=== PATIENT | male | born 1970 | race Caucasian/White ===

== ENCOUNTER 2016-11-25 10:56 | Outpatient (CLI) | payer MEDICAID | END 2016-11-25 10:57 | disposition home or self-care (01) | DX: E11.65 Type 2 diabetes mellitus with hyperglycemia (principal) ==

== ENCOUNTER 2017-03-01 07:31 | Outpatient (CLI) | payer MEDICAID | END 2017-03-01 07:32 | disposition home or self-care (01) | DX: E11.65 Type 2 diabetes mellitus with hyperglycemia (principal); E66.01 Morbid (severe) obesity due to excess calories ==

== ENCOUNTER 2017-06-10 10:32 | Outpatient (CLI) | payer MEDICAID ==
[2017-06-10 18:16] LABS: CALCIUM 8.4 mg/dL (8.5-10.3); CREATININE 0.6 mg/dL (0.6-1.2); POTASSIUM 4.5 mmol/L (3.5-5.0)
[2017-06-10 18:34] LABS: HEMOGLOBIN A1C 1.31 g/dL
== END 2017-06-10 10:33 | disposition home or self-care (01) ==
LOC: LAB.F 10:32
PROVIDERS: ATTEND Nurse Practitioner Family
DX: E11.65 Type 2 diabetes mellitus with hyperglycemia (principal); Z79.4 Long term (current) use of insulin
CPT/HCPCS: 36415; 80048; 83036

== ENCOUNTER 2017-06-14 08:31 | Outpatient (CLI) | payer MEDICAID ==
[2017-06-14 19:20] LABS: CALCIUM 8.6 mg/dL (8.5-10.3); CREATININE 0.8 mg/dL (0.6-1.2); POTASSIUM 4.4 mmol/L (3.5-5.0)
== END 2017-06-14 08:32 | disposition home or self-care (01) ==
LOC: LAB.S 08:31
PROVIDERS: ATTEND Nurse Practitioner Family
DX: E11.65 Type 2 diabetes mellitus with hyperglycemia (principal)
CPT/HCPCS: 36415; 80048

== ENCOUNTER 2017-08-30 13:12 | Outpatient (CLI) | payer MEDICAID | END 2017-08-30 13:13 | disposition home or self-care (01) | LOC: SC 13:12 | PROVIDERS: ATTEND Internal Medicine Pulmonary Disease | DX: G47.33 Obstructive sleep apnea (adult) (pediatric) (principal) | CPT/HCPCS: 99203; 99212 ==

== ENCOUNTER 2017-09-30 13:02 | Outpatient (CLI) | payer MEDICAID | END 2017-09-30 13:03 | disposition home or self-care (01) | LOC: SC 13:02 | PROVIDERS: ATTEND Specialist | DX: G47.33 Obstructive sleep apnea (adult) (pediatric) (principal) | CPT/HCPCS: 99212; 99215 ==

== ENCOUNTER 2017-12-13 08:00 | Outpatient (CLI) | payer MEDICAID ==
[2017-12-13 19:45] LABS: CALCIUM 8.6 mg/dL (8.5-10.3); CREATININE 0.8 mg/dL (0.6-1.2)
[2017-12-13 19:53] LABS: HEMOGLOBIN A1C 1.57 g/dL; HEMOGLOBIN A1C % 10.1 % (4.6-6.2)
== END 2017-12-13 08:01 | disposition home or self-care (01) ==
LOC: LAB.N 08:00
PROVIDERS: ATTEND Nurse Practitioner Family
DX: E11.65 Type 2 diabetes mellitus with hyperglycemia (principal)
CPT/HCPCS: 36415; 80048; 83036

== ENCOUNTER 2017-12-13 13:15 | Outpatient (CLI) | payer MEDICAID | END 2017-12-13 13:16 | disposition home or self-care (01) | LOC: SC 13:15 | PROVIDERS: ATTEND Nurse Practitioner Family | DX: G47.33 Obstructive sleep apnea (adult) (pediatric) (principal) | CPT/HCPCS: 99212; 99214 ==

== ENCOUNTER 2017-12-28 08:24 | Outpatient (CLI) | payer MEDICAID | END 2017-12-28 08:25 | disposition home or self-care (01) | LOC: SC 08:24 | PROVIDERS: ATTEND Nurse Practitioner Family | DX: G47.33 Obstructive sleep apnea (adult) (pediatric) (principal) | CPT/HCPCS: 99212; 99214 ==

== ENCOUNTER 2018-02-24 10:37 | Outpatient (CLI) | payer MEDICAID | END 2018-02-24 10:38 | disposition home or self-care (01) | LOC: SC 10:37 | PROVIDERS: ATTEND Nurse Practitioner Family | DX: G47.33 Obstructive sleep apnea (adult) (pediatric) (principal) | CPT/HCPCS: 99212; 99214 ==

== ENCOUNTER 2018-03-28 10:48 | Outpatient (CLI) | payer MEDICAID | END 2018-03-28 10:49 | disposition home or self-care (01) | LOC: SC 10:48 | PROVIDERS: ATTEND Nurse Practitioner Family | DX: G47.33 Obstructive sleep apnea (adult) (pediatric) (principal) | CPT/HCPCS: 99214 ==

== ENCOUNTER 2018-03-28 13:43 | Outpatient (CLI) | payer MEDICAID ==
[2018-03-28 19:29] LABS: ALBUMIN 3.9 g/dL (3.2-5.5); ALKALINE PHOSPHATASE 47 IU/L (42-121); ALT ALANINE AMINOTRANSFERASE 24 IU/L (10-60); AST ASPARTATE AMINOTRANSFERASE 20 IU/L (10-42); BUN - BLOOD UREA NITROGEN 15 mg/dL (6-20); CALCIUM 8.7 mg/dL (8.5-10.3); CARBON DIOXIDE - CO2 28 mmol/L (21-32); CHLORIDE 100 mmol/L (101-111); CHOL/HDL RATIO 4.3 (<5.0); CHOLESTEROL 169 mg/dL; CREATININE 0.6 mg/dL (0.6-1.2); GFR - MDRD 144 (>89); GLUCOSE 128 mg/dL (70-100); HDL CHOLESTEROL 39 mg/dL; LDL CHOLESTEROL,CALCULATED 87 mg/dL; LDL/HDL RATIO 2.2 (<3.6); SODIUM 136 mmol/L (135-145); TOTAL PROTEIN 7.7 g/dL (6.7-8.2); URIC ACID 6.1 mg/dL (2.6-7.2); VLDL CHOLESTEROL 43 mg/dL
[2018-03-28 20:09] LABS: HB2 TOTAL 16.5 g/dL; HEMOGLOBIN A1C 1.12 g/dL; HEMOGLOBIN A1C % 8.4 % (4.6-6.2)
== END 2018-03-28 13:44 | disposition home or self-care (01) ==
LOC: LAB.N 13:43
PROVIDERS: ATTEND Nurse Practitioner Family
DX: E11.621 Type 2 diabetes mellitus with foot ulcer (principal); I10 Essential (primary) hypertension; L03.031 Cellulitis of right toe
CPT/HCPCS: 36415; 80053; 80061; 83036; 83721; 84550

== ENCOUNTER 2018-03-29 11:51 | Outpatient (CLI) | payer MEDICAID ==
--- NOTE | 2018-03-29 12:50 | XRAY Report ---
THREE VIEW RIGHT GREAT TOE: 03/29/2018 CLINICAL INDICATION: Swelling and pain. FINDINGS: AP, lateral, oblique views of the right great toe demonstrate a mildly displaced, intraarticular fracture of the distal end of the proximal phalanx. No other fracture is appreciated. No radiopaque foreign body is seen in the soft tissues. IMPRESSION: MILDLY DISPLACED, INTRAARTICULAR FRACTURE OF THE DISTAL END OF THE PROXIMAL PHALANX OF THE GREAT TOE. TD: 03/29/2018 12:28
== END 2018-03-29 11:52 | disposition home or self-care (01) ==
LOC: DI.S 11:51
PROVIDERS: ATTEND Nurse Practitioner Family
DX: S92.411A Displaced fracture of proximal phalanx of right great toe, initial encounter for closed fracture (principal); M79.89 Other specified soft tissue disorders
CPT/HCPCS: 73660

== ENCOUNTER 2018-06-28 10:46 | Outpatient (CLI) | payer MEDICAID | END 2018-06-28 10:47 | disposition home or self-care (01) | LOC: SC 10:46 | PROVIDERS: ATTEND Nurse Practitioner Family | DX: G47.30 Sleep apnea, unspecified (principal) | CPT/HCPCS: 99212; 99214 ==

== ENCOUNTER 2018-07-20 10:48 | Outpatient (CLI) | payer MEDICAID ==
[2018-07-20 18:10] LABS: HB2 TOTAL 15.5 g/dL; HEMOGLOBIN A1C % 8.1 % (4.6-6.2)
[2018-07-20 18:20] LABS: CALCIUM 8.1 mg/dL (8.5-10.3); CREATININE 0.8 mg/dL (0.6-1.2)
== END 2018-07-20 10:49 | disposition home or self-care (01) ==
LOC: LAB.F 10:48
PROVIDERS: ATTEND Nurse Practitioner Family
DX: I10 Essential (primary) hypertension (principal); E11.9 Type 2 diabetes mellitus without complications
CPT/HCPCS: 36415; 80048; 82043; 83036

== ENCOUNTER 2018-12-12 13:40 | Outpatient (CLI) | payer MEDICAID | END 2018-12-12 13:41 | disposition home or self-care (01) | LOC: SC 13:40 | PROVIDERS: ATTEND Nurse Practitioner Family | DX: G47.33 Obstructive sleep apnea (adult) (pediatric) (principal) | CPT/HCPCS: 99212; 99214 ==

== ENCOUNTER 2019-03-06 08:00 | Outpatient (CLI) | payer MEDICAID ==
[2019-03-06 19:00] LABS: ALBUMIN/GLOBULIN RATIO 0.9 (1.0-2.2); ALKALINE PHOSPHATASE 52 IU/L (42-121); ALT ALANINE AMINOTRANSFERASE 23 IU/L (10-60); AST ASPARTATE AMINOTRANSFERASE 16 IU/L (10-42); BILIRUBIN,TOTAL 0.6 mg/dL (0.2-1.0); BUN - BLOOD UREA NITROGEN 19 mg/dL (6-20); CALCIUM 9.1 mg/dL (8.5-10.3); CARBON DIOXIDE - CO2 25 mmol/L (21-32); CHLORIDE 103 mmol/L (101-111); CHOL/HDL RATIO 3.5 (<5.0); CHOLESTEROL 183 mg/dL; CREATININE 0.8 mg/dL (0.6-1.2); GFR - MDRD 103 (>89); GLUCOSE 191 mg/dL (70-100); HDL CHOLESTEROL 52 mg/dL; LDL CHOLESTEROL,CALCULATED 98 mg/dL; LDL/HDL RATIO 1.9 (<3.6); SODIUM 139 mmol/L (135-145); TOTAL PROTEIN 8.3 g/dL (6.7-8.2); VLDL CHOLESTEROL 33 mg/dL
[2019-03-06 19:16] LABS: HB2 TOTAL 17.2 g/dL; HEMOGLOBIN A1C 1.07 g/dL; HEMOGLOBIN A1C % 7.8 % (4.6-6.2)
== END 2019-03-06 23:59 | disposition home or self-care (01) ==
LOC: LAB.N 08:00
PROVIDERS: ATTEND Internal Medicine
DX: E11.65 Type 2 diabetes mellitus with hyperglycemia (principal); E78.5 Hyperlipidemia, unspecified
CPT/HCPCS: 36415; 80053; 80061; 82043; 83036; 83721

== ENCOUNTER 2020-01-01 14:50 | Outpatient (CLI) | payer MEDICAID ==
[2020-01-01 15:42] VITALS: BP 120/74
--- NOTE | 2020-01-01 15:42 | SLEEP CARE CONSULTATION ---
Information from patient questionnaire entered by Alda Alcantara. I have reviewed and concur with the information entered by Alda Alcantara. This document represents the service I personally performed and the decisions made by me, Macie Matute, RN, MSN, TRANSFORMATION CONSULTANT. History of Present Illness Previous diagnosis: Severe, Obstructive Sleep Apnea-Hypopnea Syndrome AHI: 70.4 Reason for follow up: annual Equipment type: CPAP Equipment obtained from: [facility] (while traveling obtained filters at pharmacy.) Mask brand: Respironics Backup mask available: Yes (old mask for spare ) Last cushion change: 4 months ago Prior sleep studies: Yes CPAP Compliance Data - Data Reviewed with Patient Average duration of nightly device use: 6H 1M Compliance rate %: 81.1 Current pressure setting (cmH2O): 19-20 Humidity settin Heated hose settin Average residual AHI: 4.8 Average large leak: 15m 31s Subjective Patient concerns: reports: air blowing in eyes (every other night until tightened more - headgear old ), dry mouth, nose, throat (1 time a week ). denies: aerophagia, mask discomfort, mask leak noise, condensation in mask/hose, nasal congestion, epistaxis Observed to snore while using device: No Current pressure setting perceived as: comfortable On therapy, patient: reports: sleeping better, awakening more refreshed, being more awake and alert during the day, more rested overall. denies: drowsiness while driving Initial Redwood Sleepiness Scale score: 19 Current Redwood Sleepiness Scale score: 9 Allergies and Home Medications Known drug allergies: Yes (penicillin, clindamycin ) Home medication list reviewed: Yes Allergy and home medication list: Medication Name (generic/name brand) Strength & Dosage Ibuprofen 800mg tab one three times daily Baclofen 10mg tab one daily at bedtime Gabapentin 300mg cap three tablets 2 times daily Furosemide 20mg tab one daily in the am Simvastatin 20mg tab one daily at bedtime Lisinopril 40mg - tab every other day. Recently the prescription has been reduce to 20mg to take tab. Jardiance 25mg tab one daily Glipizide 5mg tab one twice daily with food duloxetine daily HS unknown dose Wellbutrin 300mg tab one daily Review of Systems Review of systems same as previous: Yes Physical Exam Blood Pressure: 120/74 Cuff size: long Heart Rate: 77 O2 Saturation: 98 Height: 6 ft 2 in Weight: 321 lb Body Mass Index: 41.2 BMI Classification: Morbidly Obese Impression and Plan 1. Obstructive Sleep Apnea-Hypopnea Syndrome, very severe, with good treatment compliance and good apnea control. On CPAP therapy, the patient has better sleep quality and is more rested overall. Oral dryness can be reduced by adjus ting humidity setting higher or heated hose lower or by adjusting both settings. Oral dryness can also be reduced by reducing mask leaks. Patient advised that chronic oral dryness can affect dental health and advised to follow up with dentist. In addition, there are oral dryness products that can be used to reduce dryness such as Biotene products, Dry mouth rinse and Xylomelts. Patient to discuss best option with dentist.Patient has lost weight. Currently patients BMI is 41.9 obesity class. Obesity increases the risk of apnea, CPAP pressure requirements and overall health risks especially cardiovascular and diabetes. Thus patient is advised to continue to lose weight. Weight loss can be done with reducing portion size, reducing refined foods and balancing content with vegetables, fruit and protein. In addition tracking food intake will allow awareness of how to modify diet to achieve weight loss goals. Also eating more slowly will allow more awareness of food intake and enjoyment of food while assisting patient to modify intake at each meal. A diet consultation can be helpful in achieving optimal weight loss goals. The BMI chart was reviewed. The patient would like to reduce about 20 -25 pounds bringing their BMI down to about 38. Patient encouraged to discuss their weight loss goals with their PCP and consider a referral to a air control/anti air warfare officer. The patient's CPAP pressure range should accommodate some weight loss. Symptoms to report for additional pressure adjustment discussed. Patient's apnea severity and rationale for treatment to reduce apnea, improve sleep quality and reduce cardiovascular and cerebrovascular events was reviewed. I also reviewed the benefit of consistent device use of CPAP for hypertension, diabetes, depression/anxiety. He is also considering transferring to new [facility] that will send him equipment for convenience of sending equipment to his home. I will have my early childhood education coordinator inform of DME options. A DWO prescription will then be made. Patient advised to contact this office if further supply problems. Patient decided to transfer to [facility] after discussing his options. * Continue CPAP pressure at 19 -20 cmH2O * Adjust heated hose * Update supplies to reduce mask leaks. * Transfer to new [facility] * Notify me if snoring with mask or feeling that the pressure is too much or too little * Attempt to lose weight * Follow up with PCP for diet consultation referral * Call this office if any problems using CPAP * Return for follow up in 1 year , or sooner if concerns arise Time Spent with Patient (minutes): 29 I spent 100% of this visit face to face with the patient with greater than 50% of this was spent time counseling the patient and coordination of care.
== END 2020-01-01 14:51 | disposition home or self-care (01) ==
LOC: SC 14:50
PROVIDERS: ATTEND Nurse Practitioner Family
DX: G47.33 Obstructive sleep apnea (adult) (pediatric) (principal); E66.01 Morbid (severe) obesity due to excess calories; Z68.41 Body mass index [BMI] 40.0-44.9, adult
CPT/HCPCS: 99212; 99214

== ENCOUNTER 2020-03-11 14:18 | Outpatient (CLI) | payer MEDICAID ==
[2020-03-11 14:54] LABS: ALBUMIN 4.1 g/dL (3.2-5.5); ALBUMIN/GLOBULIN RATIO 1.1 (1.0-2.2); ALKALINE PHOSPHATASE 49 IU/L (42-121); ALT ALANINE AMINOTRANSFERASE 27 IU/L (10-60); AST ASPARTATE AMINOTRANSFERASE 19 IU/L (10-42); BILIRUBIN,TOTAL 0.9 mg/dL (0.2-1.0); BUN - BLOOD UREA NITROGEN 17 mg/dL (6-20); CALCIUM 8.5 mg/dL (8.5-10.3); CARBON DIOXIDE - CO2 28 mmol/L (21-32); CHLORIDE 100 mmol/L (101-111); CHOL/HDL RATIO 3.7 (<5.0); CHOLESTEROL 162 mg/dL; CREATININE 0.7 mg/dL (0.6-1.2); GLUCOSE 173 mg/dL (70-100); HDL CHOLESTEROL 44 mg/dL; LDL CHOLESTEROL,CALCULATED 79 mg/dL; LDL/HDL RATIO 1.8 (<3.6); SODIUM 137 mmol/L (135-145); TOTAL PROTEIN 7.8 g/dL (6.7-8.2); VLDL CHOLESTEROL 39 mg/dL
[2020-03-11 15:08] LABS: HB2 TOTAL 16.7 g/dL; HEMOGLOBIN A1C 1.14 g/dL; HEMOGLOBIN A1C % 8.4 % (4.6-6.2)
== END 2020-03-11 14:19 | disposition home or self-care (01) ==
LOC: LAB 14:18
PROVIDERS: ATTEND Internal Medicine
DX: E11.9 Type 2 diabetes mellitus without complications (principal)
CPT/HCPCS: 36415; 80053; 80061; 83036; 83721

== ENCOUNTER 2020-12-13 12:42 | Outpatient (CLI) | payer MEDICAID ==
[2020-12-13 15:22] LABS: CALCIUM 9.2 mg/dL (8.5-10.3); CREATININE 0.7 mg/dL (0.6-1.2)
[2020-12-13 15:50] LABS: HEMOGLOBIN A1c% 8.3 % (4.27-6.07)
[2020-12-13 20:14] LABS: CREATININE,URINE 83.3 mg/dL; MICROALBUM/CREATININE RATIO,UR 4.8 ug/mg (<30.0); MICROALBUMIN,URINE 0.4 mg/dL (0-300.0)
== END 2020-12-13 12:43 | disposition home or self-care (01) ==
LOC: LAB.S 12:42
PROVIDERS: ATTEND Registered Nurse
DX: E11.9 Type 2 diabetes mellitus without complications (principal)
CPT/HCPCS: 36415; 80048; 82043; 82570; 83036

== ENCOUNTER 2021-09-04 15:59 | Outpatient (CLI) | payer MEDICAID ==
[2021-09-04 16:30] LABS: CALCIUM 9.5 mg/dL (8.5-10.3); CREATININE 0.6 mg/dL (0.6-1.2); POTASSIUM 4.4 mmol/L (3.5-5.0)
[2021-09-04 16:45] LABS: CREATININE,URINE 63.3 mg/dL; MICROALBUM/CREATININE RATIO,UR 3.2 ug/mg (<30.0); MICROALBUMIN,URINE 0.2 mg/dL (0-300.0)
[2021-09-04 19:48] LABS: ESTIMATED AVERAGE GLUCOSE 197 mg/dL (70-100); HEMOGLOBIN A1c% 8.5 % (4.27-6.07)
== END 2021-09-04 16:00 | disposition home or self-care (01) ==
LOC: LAB 15:59
PROVIDERS: ATTEND Registered Nurse
DX: E11.9 Type 2 diabetes mellitus without complications (principal)
CPT/HCPCS: 36415; 80048; 82043; 82570; 83036

== ENCOUNTER 2022-01-19 09:58 | Day surgery (SDC) | payer MEDICAID ==
[2022-01-19] MEDS ORDERED: LACTATED RINGERS 1,000 ML IV ONE ×2 (10:25→13:20)
--- NOTE | 2022-01-19 11:55 | ANESTHESIA ---
Pre-Anesthesia VS, & Labs - Diagnosis screening - Procedure colonoscopy Vital Signs: Temp Pulse Resp BP Pulse Ox 36.3 C L 76 16 166/97 H 96 01/19/22 10:12 01/19/22 10:12 01/19/22 10:12 01/19/22 10:12 01/19/22 10:12 Height: 6 ft 2 in Weight (kg): 141.6 kg Body Mass Index: 40.1 BMI Classification: Morbidly Obese - NPO >8 hours - Lab Results Current Lab Results: Laboratory Tests 01/19/22 10:24: POC Whole Bld Glucose 241 H Home Medications and Allergies Home Medications: Ambulatory Orders Bupropion HCl [Wellbutrin Xl] 300 mg PO DAILY 01/05/22 Duloxetine HCl [Cymbalta] 60 mg PO DAILY 01/05/22 buPROPion HCL [Bupropion Xl] 150 mg PO DAILY 01/05/22 Glimepiride [Amaryl] 1 tab DAILY 01/19/22 lisinopriL [Lisinopril] 30 mg PO DAILY 02/28/14 Gabapentin 900 mg PO BID 09/03/16 Simvastatin 20 mg PO DAILY 09/03/16 Bupropion HCl [Wellbutrin Xl] 300 mg PO DAILY 01/05/22 Duloxetine HCl [Cymbalta] 60 mg PO DAILY 01/05/22 buPROPion HCL [Bupropion Xl] 150 mg PO DAILY 01/05/22 Glimepiride [Amaryl] 1 tab DAILY 01/19/22 Allergies/Adverse Reactions: Allergies Allergy/AdvReac Type Severity Reaction Status Date / Time Penicillins Allergy Intermediate Unknown Verified 01/16/22 11:35 clindamycin Allergy Hives Verified 01/16/22 11:35 metformin AdvReac Nausea Verified 01/19/22 10:27 Anes History & Medical History - Anesthetic History Anesthesia Complications: reports: No previous complications - Medical History Cardiovascular: reports: Hypertension, High cholesterol, Arrhythmia Pulmonary: reports: Sleep apnea Gastrointestinal: reports: GERD Urinary: reports: None Musculoskeletal: reports: Chronic back pain Endocrine/Autoimmune: reports: Type 2 diabetes Blood Disorders: reports: None Skin: reports: None Smoking Status: Never smoker History of Cancer?: No Exam General: Alert, Oriented x3 Dental: WNL Mouth Opening: Greater than 4 Fingerbreadths Mallampati classification: II Thyromental Distance: greater than 6 cm Respiratory: Lungs clear Cardiovascular: Regular rate Plan Anesthesia Type: General Consent for Procedure(s) Verified and Reviewed: Yes Code Status: Attempt Resuscitation ASA classification: 2-Mild systemic disease Is this case an emergency?: No
[2022-01-19 13:26] VITALS: BP 108/60
--- NOTE | 2022-01-19 13:33 | ANESTHESIA POST OP EVALUATION ---
Anesthesia Post Eval - Post Anesthesia Eval Vitals: Last Vital Signs Temp 36.6 C 01/19/22 13:20 Pulse 67 01/19/22 13:26 Resp 14 01/19/22 13:26 BP 108/60 01/19/22 13:26 Pulse Ox 100 01/19/22 13:26 CV Function Including HR & BP: Stable Pain Control: Satisfactory Nausea & Vomiting: Negative Mental Status: Baseline Respiratory Status: Airway Patent Hydration Status: Satisfactory Anesthesia Complications: None
== END 2022-01-19 09:59 | disposition home or self-care (01) ==
LOC: SDS 09:58
PROVIDERS: ATTEND Surgery
DX: Z12.11 Encounter for screening for malignant neoplasm of colon (principal); E11.9 Type 2 diabetes mellitus without complications; I10 Essential (primary) hypertension; G47.33 Obstructive sleep apnea (adult) (pediatric); E66.01 Morbid (severe) obesity due to excess calories; Z68.41 Body mass index [BMI] 40.0-44.9, adult; Z79.84 Long term (current) use of oral hypoglycemic drugs; Z79.899 Other long term (current) drug therapy
CPT/HCPCS: 45330; J7120

== ENCOUNTER 2022-02-10 08:02 | Day surgery (SDC) | payer MEDICAID ==
[2022-02-10] MEDS ORDERED: PROPOFOL 500 MG/50 ML 500 MG/50 ML VIAL ONE (08:44)
[2022-02-10] MEDS ORDERED: LACTATED RINGERS 1,000 ML IV ONE ×2 (08:49→09:58)
[2022-02-10] MEDS ORDERED: MIDAZOLAM 2 MG/2 ML VIAL ONE (08:50)
--- NOTE | 2022-02-10 08:51 | ANESTHESIA ---
Pre-Anesthesia VS, & Labs - Diagnosis Screening exam - Procedure colonoscopy Vital Signs: Temp Pulse Resp BP Pulse Ox 36.3 C L 69 14 147/87 H 98 02/10/22 08:31 02/10/22 08:31 02/10/22 08:31 02/10/22 08:31 02/10/22 08:31 Height: 6 ft 2 in Weight (kg): 140 kg Body Mass Index: 39.6 BMI Classification: Obese - NPO >8 hours Home Medications and Allergies lisinopriL [Lisinopril] 20 mg PO DAILY 02/28/14 Gabapentin 900 mg PO BID 09/03/16 Simvastatin 20 mg PO DAILY 09/03/16 Bupropion HCl [Wellbutrin Xl] 300 mg PO DAILY 01/05/22 Duloxetine HCl [Cymbalta] 120 mg PO DAILY 01/05/22 buPROPion HCL [Bupropion Xl] 450 mg PO DAILY 01/05/22 Glimepiride [Amaryl] 1 tab ORAL DAILY 01/19/22 Allergies/Adverse Reactions: Allergies Allergy/AdvReac Type Severity Reaction Status Date / Time Penicillins Allergy Intermediate Unknown Verified 01/16/22 11:35 clindamycin Allergy Hives Verified 01/16/22 11:35 metformin AdvReac Nausea Verified 01/19/22 10:27 Anes History & Medical History - Anesthetic History Anesthesia Complications: reports: No previous complications - Medical History Cardiovascular: reports: Hypertension, High cholesterol, Arrhythmia Pulmonary: reports: Sleep apnea, CPAP use Gastrointestinal: reports: GERD Urinary: reports: None Neuro: reports: Peripheral neuropathy Musculoskeletal: reports: Chronic back pain Endocrine/Autoimmune: reports: Type 2 diabetes Blood Disorders: reports: None Skin: reports: None Smoking Status: Never smoker Psychosocial: reports: Depression, Anxiety History of Cancer?: No - Surgical History Other Past Surgical History: cystoscopy, varicose vein Exam General: Alert, Oriented x3, Cooperative, No acute distress Dental: WNL Mouth Openin Fingerbreadth Neck Mobility: Normal Mallampati classification: II Thyromental Distance: 4-6 cm Mental/Cognitive Status: Alert/Oriented X3, Normal for patient Plan Anesthesia Type: General, Total IV Consent for Procedure(s) Verified and Reviewed: Yes Code Status: Attempt Resuscitation ASA classification: 3-Severe systemic disease Is this case an emergency?: No
[2022-02-10] MEDS ORDERED: SIMETHICONE 40 MG/0.6 ML 30 ML BOTTLE ONE (09:23)
--- NOTE | 2022-02-10 09:33 | ANESTHESIA POST OP EVALUATION ---
Anesthesia Post Eval - Post Anesthesia Eval Vitals: Last Vital Signs Temp 36.3 C L 02/10/22 08:31 Pulse 69 02/10/22 08:31 Resp 14 02/10/22 08:31 BP 147/87 H 02/10/22 08:31 Pulse Ox 98 02/10/22 08:31 CV Function Including HR & BP: Stable Pain Control: Satisfactory Nausea & Vomiting: Negative Mental Status: Baseline Respiratory Status: Airway Patent Hydration Status: Satisfactory Anesthesia Complications: None
[2022-02-10 10:17] VITALS: BP 110/58
--- NOTE | 2022-02-10 10:58 | ANESTHESIA POST OP EVALUATION ---
Anesthesia Post Eval - Post Anesthesia Eval Vitals: Last Vital Signs Temp 36.7 C 02/10/22 09:56 Pulse 61 02/10/22 10:17 Resp 20 02/10/22 10:17 BP 110/58 L 02/10/22 10:17 Pulse Ox 100 02/10/22 10:17 CV Function Including HR & BP: Stable Pain Control: Satisfactory Nausea & Vomiting: Negative Mental Status: Baseline Respiratory Status: Airway Patent Hydration Status: Satisfactory Anesthesia Complications: None
== END 2022-02-10 08:03 | disposition home or self-care (01) ==
LOC: SDS 08:02
PROVIDERS: ATTEND Surgery
PROC: 0DBN8ZX Excision of Sigmoid Colon, Via Natural or Artificial Opening Endoscopic, Diagnostic (ICD-10-PCS; principal; 2022-02-10 09:00)
DX: Z12.11 Encounter for screening for malignant neoplasm of colon (principal); D37.4 Neoplasm of uncertain behavior of colon; K57.30 Diverticulosis of large intestine without perforation or abscess without bleeding; K63.5 Polyp of colon; K64.4 Residual hemorrhoidal skin tags; K64.8 Other hemorrhoids; Q43.8 Other specified congenital malformations of intestine; G47.33 Obstructive sleep apnea (adult) (pediatric); E11.42 Type 2 diabetes mellitus with diabetic polyneuropathy; E66.9 Obesity, unspecified; E78.00 Pure hypercholesterolemia, unspecified; I10 Essential (primary) hypertension; Z68.39 Body mass index [BMI] 39.0-39.9, adult; Z79.84 Long term (current) use of oral hypoglycemic drugs; Z79.899 Other long term (current) drug therapy; Z80.0 Family history of malignant neoplasm of digestive organs
CPT/HCPCS: 45380; 45385; A9270; J7120

== ENCOUNTER 2022-09-04 06:29 | Day surgery (SDC) | payer MEDICAID ==
[2022-09-04] MEDS ORDERED: LACTATED RINGERS 1,000 ML IV ONE ×2 (06:52→08:10)
--- NOTE | 2022-09-04 07:11 | ANESTHESIA ---
Pre-Anesthesia VS, & Labs - Diagnosis history of colon polyps - Procedure colonoscopy Vital Signs: Temp Pulse Resp BP Pulse Ox O2 Flow Rate 36.5 C 66 16 147/92 H 99 0 09/04/22 06:40 09/04/22 06:40 09/04/22 06:40 09/04/22 06:40 09/04/22 06:40 09/04/22 06:40 Height: 6 ft 2 in Weight (kg): 132.5 kg Body Mass Index: 37.5 BMI Classification: Obese - NPO >8 hours - Lab Results Current Lab Results: Laboratory Tests 09/04/22 06:47: POC Whole Bld Glucose 121 H Home Medications and Allergies Home Medications: Ambulatory Orders Empagliflozin [Jardiance] 25 mg PO DAILY 09/04/22 Metformin HCl [Metformin ER Gastric] 1,000 mg PO DAILY 09/04/22 lisinopriL [Lisinopril] 20 mg PO DAILY 02/28/14 Gabapentin 900 mg PO BID 09/03/16 Simvastatin 20 mg PO DAILY 09/03/16 Bupropion HCl [Wellbutrin Xl] 300 mg PO DAILY 01/05/22 Duloxetine HCl [Cymbalta] 120 mg PO DAILY 01/05/22 buPROPion HCL [Bupropion Xl] 450 mg PO DAILY 01/05/22 Glimepiride [Amaryl] 1 tab ORAL DAILY 01/19/22 Empagliflozin [Jardiance] 25 mg PO DAILY 09/04/22 Metformin HCl [Metformin ER Gastric] 1,000 mg PO DAILY 09/04/22 Allergies/Adverse Reactions: Allergies Allergy/AdvReac Type Severity Reaction Status Date / Time Penicillins Allergy Intermediate Unknown Verified 09/04/22 06:49 clindamycin Allergy Hives Verified 09/04/22 06:49 metformin AdvReac Nausea Verified 09/04/22 06:49 Anes History & Medical History - Anesthetic History Anesthesia Complications: reports: No previous complications - Medical History Cardiovascular: reports: Hypertension, High cholesterol, Arrhythmia Pulmonary: reports: Sleep apnea, CPAP use Gastrointestinal: reports: GERD Urinary: reports: None Neuro: reports: Peripheral neuropathy Musculoskeletal: reports: Chronic back pain Endocrine/Autoimmune: reports: Type 2 diabetes Blood Disorders: reports: None Skin: reports: None Smoking Status: Never smoker Psychosocial: reports: Depression, Anxiety History of Cancer?: No Exam General: Alert, Oriented x3, Cooperative, No acute distress Dental: WNL Mouth Openin Fingerbreadth Neck Mobility: Normal Mallampati classification: II Thyromental Distance: 4-6 cm Mental/Cognitive Status: Alert/Oriented X3, Normal for patient Plan Anesthesia Type: General, Total IV Consent for Procedure(s) Verified and Reviewed: Yes Code Status: Attempt Resuscitation ASA classification: 3-Severe systemic disease Is this case an emergency?: No
[2022-09-04] MEDS ORDERED: PROPOFOL 500 MG/50 ML 500 MG/50 ML VIAL ONE (07:28)
[2022-09-04] MEDS ORDERED: MIDAZOLAM 2 MG/2 ML VIAL ONE (07:32)
[2022-09-04 08:38] VITALS: BP 126/81
--- NOTE | 2022-09-04 10:28 | ANESTHESIA POST OP EVALUATION ---
Anesthesia Post Eval - Post Anesthesia Eval Vitals: Last Vital Signs Temp 36.2 C L 09/04/22 08:35 Pulse 75 09/04/22 08:35 Resp 16 09/04/22 08:35 BP 126/81 H 09/04/22 08:35 Pulse Ox 99 09/04/22 08:35 O2 Flow Rate 0 09/04/22 06:40
== END 2022-09-04 06:30 | disposition home or self-care (01) ==
LOC: SDS 06:29
PROVIDERS: ATTEND Surgery
PROC: 0DBL8ZZ Excision of Transverse Colon, Via Natural or Artificial Opening Endoscopic (ICD-10-PCS; 2022-09-04)
PROC: 0DBN8ZZ Excision of Sigmoid Colon, Via Natural or Artificial Opening Endoscopic (ICD-10-PCS; principal; 2022-09-04 07:30)
DX: K63.5 Polyp of colon (principal); D17.5 Benign lipomatous neoplasm of intra-abdominal organs; Q27.9 Congenital malformation of peripheral vascular system, unspecified; F41.9 Anxiety disorder, unspecified; G47.33 Obstructive sleep apnea (adult) (pediatric); E11.42 Type 2 diabetes mellitus with diabetic polyneuropathy; Z79.85 Long-term (current) use of injectable non-insulin antidiabetic drugs; Z79.84 Long term (current) use of oral hypoglycemic drugs
CPT/HCPCS: 45380; 45385; J7120

== ENCOUNTER 2022-11-20 15:17 | Outpatient (CLI) | payer MEDICAID ==
[2022-11-20 15:38] LABS: BASOPHILS # (AUTO) 0.1 10^3/uL (0.0-0.1); EOSINOPHILS # (AUTO) 0.2 10^3/uL (0.0-0.7); EOSINOPHILS % (AUTO) 3.1 %; HCT - HEMATOCRIT 48.6 % (42.0-52.0); HGB - HEMOGLOBIN 15.8 g/dL (14.0-18.0); LYMPHOCYTES # (AUTO) 2.1 10^3/uL (1.5-3.5); LYMPHOCYTES % (AUTO) 27.6 %; MEAN CORPUSCULAR HEMOGLOBIN 31.4 pg (27.0-31.0); MEAN CORPUSCULAR HGB CONC 32.5 g/dL (32.0-36.0); MEAN CORPUSCULAR VOLUME 96.6 fL (80.0-94.0); MEAN PLATELET VOLUME 9.8 fL (7.4-11.4); MONOCYTES # (AUTO) 0.5 10^3/uL (0.0-1.0); NEUTROPHILS # (AUTO) 4.7 10^3/uL (1.5-6.6); NEUTROPHILS % (AUTO) 61.3 %; PLT - PLATELET COUNT 224 10^3/uL (130-450); RED BLOOD COUNT 5.03 10^6/uL (4.70-6.10); WHITE BLOOD COUNT 7.7 x10^3/uL (4.8-10.8)
[2022-11-20 15:51] LABS: CREATININE,URINE 110.4 mg/dL; MICROALBUM/CREATININE RATIO,UR 8.2 ug/mg (<30.0); MICROALBUMIN,URINE 0.9 mg/dL (0-300.0)
[2022-11-20 15:56] LABS: ALBUMIN 4.1 g/dL (3.2-5.5); ALBUMIN/GLOBULIN RATIO 1.2 (1.0-2.2); ALKALINE PHOSPHATASE 47 IU/L (42-121); ALT ALANINE AMINOTRANSFERASE 27 IU/L (10-60); AST ASPARTATE AMINOTRANSFERASE 21 IU/L (10-42); BUN - BLOOD UREA NITROGEN 19 mg/dL (6-20); CALCIUM 8.9 mg/dL (8.5-10.3); CARBON DIOXIDE - CO2 30 mmol/L (21-32); CHLORIDE 96 mmol/L (101-111); CHOL/HDL RATIO 3.8 (<5.0); CHOLESTEROL 194 mg/dL; CREATININE 0.8 mg/dL (0.6-1.2); GFR - MDRD 102 (>89); GLUCOSE 196 mg/dL (70-100); HDL CHOLESTEROL 51 mg/dL; LDL CHOLESTEROL,CALCULATED 96 mg/dL; LDL/HDL RATIO 1.9 (<3.6); POTASSIUM 4.3 mmol/L (3.5-5.0); SODIUM 136 mmol/L (135-145); TOTAL PROTEIN 7.4 g/dL (6.7-8.2); TRIGLYCERIDES 235 mg/dL; VLDL CHOLESTEROL 47 mg/dL
[2022-11-20 16:05] LABS: THYROID STIMULATING HORMONE 2.54 uIU/mL (0.34-5.60)
[2022-11-20 19:49] LABS: ESTIMATED AVERAGE GLUCOSE 255 mg/dL (70-100); HEMOGLOBIN A1c% 10.5 % (4.27-6.07)
== END 2022-11-20 15:18 | disposition home or self-care (01) ==
LOC: LAB 15:17
PROVIDERS: ATTEND Registered Nurse
DX: E11.9 Type 2 diabetes mellitus without complications (principal); Z79.899 Other long term (current) drug therapy; Z13.29 Encounter for screening for other suspected endocrine disorder
CPT/HCPCS: 36415; 80053; 80061; 82043; 82570; 83036; 83721; 84153; 84443; 85025

== ENCOUNTER 2023-06-16 14:02 | Outpatient (CLI) | payer MEDICAID ==
[2023-06-16 14:25] LABS: CALCIUM 9.4 mg/dL (8.5-10.3); CREATININE 0.8 mg/dL (0.6-1.3); POTASSIUM 4.3 mmol/L (3.5-4.5)
[2023-06-16 14:47] LABS: CREATININE,URINE 77.6 mg/dL
[2023-06-16 14:48] LABS: MICROALBUMIN,URINE < 0.7 mg/dL
[2023-06-16 20:03] LABS: ESTIMATED AVERAGE GLUCOSE 160 mg/dL (70-100); HEMOGLOBIN A1c% 7.2 % (4.27-6.07)
== END 2023-06-16 14:03 | disposition home or self-care (01) ==
LOC: LAB 14:02
PROVIDERS: ATTEND Registered Nurse
DX: E11.9 Type 2 diabetes mellitus without complications (principal)
CPT/HCPCS: 36415; 80048; 82043; 82570; 83036

== ENCOUNTER 2024-03-20 12:22 | Outpatient (CLI) | payer MEDICAID ==
[2024-03-20 12:39] LABS: BASOPHILS # (AUTO) 0.1 10^3/uL (0.0-0.1); EOSINOPHILS # (AUTO) 0.2 10^3/uL (0.0-0.7); EOSINOPHILS % (AUTO) 3.1 %; HCT - HEMATOCRIT 48.2 % (42.0-52.0); HGB - HEMOGLOBIN 15.4 g/dL (14.0-18.0); LYMPHOCYTES # (AUTO) 2.2 10^3/uL (1.5-3.5); LYMPHOCYTES % (AUTO) 30.8 %; MEAN CORPUSCULAR HEMOGLOBIN 31.6 pg (27.0-31.0); MEAN PLATELET VOLUME 9.8 fL (7.4-11.4); MONOCYTES # (AUTO) 0.6 10^3/uL (0.0-1.0); MONOCYTES % (AUTO) 8.6 %; NEUTROPHILS # (AUTO) 3.9 10^3/uL (1.5-6.6); NEUTROPHILS % (AUTO) 55.7 %; PLT - PLATELET COUNT 212 10^3/uL (130-450); RED BLOOD COUNT 4.87 10^6/uL (4.70-6.10); RED CELL DISTRIBUTION WIDTH 12.1 % (12.0-15.0); WHITE BLOOD COUNT 7.1 x10^3/uL (4.8-10.8)
[2024-03-20 12:53] LABS: ALBUMIN 3.9 g/dL (3.2-5.5); ALBUMIN/GLOBULIN RATIO 1.3 (1.0-2.2); ALKALINE PHOSPHATASE 41 IU/L (42-121); ALT ALANINE AMINOTRANSFERASE 14 IU/L (10-60); AST ASPARTATE AMINOTRANSFERASE 12 IU/L (10-42); BILIRUBIN,TOTAL 0.6 mg/dL (0.2-1.0); BUN - BLOOD UREA NITROGEN 21 mg/dL (6-20); CALCIUM 9.4 mg/dL (8.5-10.3); CARBON DIOXIDE - CO2 32 mmol/L (21-32); CHLORIDE 102 mmol/L (101-111); CHOL/HDL RATIO 3.3 (<5.0); CHOLESTEROL 134 mg/dL; CREATININE 0.9 mg/dL (0.6-1.3); GFR - MDRD 88 (>89); GLUCOSE 95 mg/dL (74-104); HDL CHOLESTEROL 41 mg/dL; LDL CHOLESTEROL,CALCULATED 57 mg/dL; LDL/HDL RATIO 1.4 (<3.6); POTASSIUM 4.9 mmol/L (3.5-4.5); SODIUM 138 mmol/L (135-145); TOTAL PROTEIN 6.9 g/dL (6.4-8.9); TRIGLYCERIDES 180 mg/dL (48-352); VLDL CHOLESTEROL 36 mg/dL
[2024-03-20 13:00] LABS: ESTIMATED AVERAGE GLUCOSE 160 mg/dL (70-100); HEMOGLOBIN A1c% 7.2 % (4.27-6.07)
== END 2024-03-20 12:23 | disposition home or self-care (01) ==
LOC: LAB 12:22
PROVIDERS: ATTEND Registered Nurse
DX: E11.65 Type 2 diabetes mellitus with hyperglycemia (principal); E78.5 Hyperlipidemia, unspecified
CPT/HCPCS: 36415; 80053; 80061; 83036; 83721; 85025

== ENCOUNTER 2024-04-06 10:02 | Day surgery (SDC) | payer MEDICAID ==
[~2024-04-06 10:02] MED LIST: ceFAZolin 2 GM VIAL ONE
[2024-04-06] MEDS ORDERED: PROPOFOL 200 MG/20 ML VIAL IVP ONE (10:20)
[2024-04-06] MEDS ORDERED: ROCURONIUM 50 MG/5 ML VIAL ONE (10:20)
[2024-04-06] MEDS ORDERED: LIDOCAINE-PF 2% 10 ML AMP SUBQ ONE (10:20)
[2024-04-06] MEDS ORDERED: MIDAZOLAM 2 MG/2 ML VIAL ONE (10:20)
[2024-04-06] MEDS ORDERED: fentaNYL 100 MCG/2 ML VIAL ONE (10:21)
[2024-04-06] MEDS ORDERED: KETAMINE 200 MG/20 ML VIAL ONE (10:26)
--- NOTE | 2024-04-06 10:29 | HISTORY & PHYSICAL EXAMINATION ---
Chief Complaint - Chief Complaint Chief Complaint: large painful hernia bulge History of Present Illness - History Obtained From Records Reviewed: yes History obtained from: pt Exam Limitations: none - History of Present Illness HPI Comment/Other: large incarcerated periumibilical ventral hernia. getting worse. History - Past Medical History Cardiovascular: reports: Hypertension, High cholesterol, Arrhythmia Respiratory: reports: Sleep apnea, CPAP use Neuro: reports: Peripheral neuropathy Endocrine/Autoimmune: reports: Type 2 diabetes GI: reports: GERD : reports: None HEENT: reports: Chronic vision loss Psych: reports: Depression, Anxiety, Post traumatic stress disorder Musculoskeletal: reports: Chronic back pain Derm: reports: None MRSA Hx?: No - Past Surgical History General: reports: Colonoscopy - POLST Patient has POLST: No Meds/Allgy - Home Medications Home Medications: Ambulatory Orders Medication Instructions Recorded Confirmed lisinopriL [Lisinopril] 20 mg PO DAILY 02/28/14 03/30/24 Gabapentin 600 mg PO BID 09/03/16 03/30/24 Simvastatin 20 mg PO DAILY 09/03/16 03/30/24 Duloxetine HCl [Cymbalta] 120 mg PO DAILY 01/05/22 03/30/24 buPROPion HCL [Bupropion Xl] 300 mg PO DAILY 01/05/22 03/30/24 Empagliflozin [Jardiance] 25 mg PO DAILY 09/04/22 03/30/24 Metformin HCl [Metformin ER 1,000 mg PO BID 09/04/22 03/30/24 Gastric] - Allergies Allergies/Adverse Reactions: Allergies Allergy/AdvReac Type Severity Reaction Status Date / Time Penicillins Allergy Intermediate Unknown Verified 04/05/24 14:16 clindamycin Allergy Hives Verified 04/05/24 14:16 metformin AdvReac Nausea Verified 04/05/24 14:16 Review of Systems - Other Findings Other Findings: 10 pt ros as above otherwise unremarkable Exam - Vital Signs Vital Signs: Vital Signs x48h Temp Pulse Resp BP Pulse Ox 04/06/24 10:18 36.5 C 69 12 139/87 H 97 - Physical Exam General Appearance: positive: Alert Eyes Bilateral: positive: PERRL, EOMI ENT: positive: No signs of dehydration Neck: positive: No JVD, Trachea midline Respiratory: positive: No respiratory distress Cardiovascular: positive: Regular rate & rhythm Abdomen: positive: Other (8x8 cm incarcerated hernia bulge periumbilical) Neurologic/Psychiatric: positive: Oriented x3 Conclusion/Plan - Problem List (1) Incarcerated ventral hernia Conclusion/Plan: plan open repair with mesh and excision umbilical skin. parq held and consent obtained
[2024-04-06] MEDS: LACTATED RINGERS 1,000 ML IV ONE (10:32)
[2024-04-06] MEDS ORDERED: BUPIVACAINE 0.25% PF 30 ML VIAL ONE (10:37)
[2024-04-06 10:42] VITALS: BP 139/87; O2SAT 97
--- NOTE | 2024-04-06 11:35 | CONSULTATION NOTE ---
Consultation Report: I saw the patient, who was scheduled for repair of a large ventral hernia under general anesthesia. During the pre op, I saw that he takes Jardiance, and his last dose was yesterday, 04/05/24. I reviewed the FDA guidelines, and guidelines from a number of organizations, and was made aware that the recommendation is to stop SGLT2 inhibitors like Jardiance 3-4 days before surgery due to the risk of euglycemic ketoacidosis. I had a discussion with Dr. Johnston and the patient; we decided that, because this is an elective surgery, we will cancel for today and reschedule soon. The patient verbalized that he would stop his Jardiance 3- 4 days before his surgery.
== END 2024-04-06 10:03 | disposition home or self-care (01) ==
LOC: SDS 10:02
PROVIDERS: ATTEND Surgery
DX: K43.6 Other and unspecified ventral hernia with obstruction, without gangrene (principal); Z53.09 Procedure and treatment not carried out because of other contraindication

== ENCOUNTER 2024-04-20 10:57 | Day surgery (SDC) | payer MEDICAID ==
[2024-04-20] MEDS: LACTATED RINGERS 1,000 ML IV ONE ×2 (11:27→15:21)
--- NOTE | 2024-04-20 12:53 | ANESTHESIA ---
Pre-Anesthesia VS, & Labs Height: 6 ft 2 in Weight (kg): 136.5 kg Body Mass Index: 38.6 BMI Classification: Obese - NPO >8 hours <Yue Trotter - Last Filed: 04/20/24 12:51> - Lab Results Lab results reviewed: Yes <Angela Pierce - Last Filed: 04/21/24 17:07> - Diagnosis Ventral hernia (Yue Trotter) - Procedure ventral hernia repair (Yue Trotter) Open ventral hernia repair with mesh (Angela Pierce) Vital Signs: Temp Pulse Resp BP Pulse Ox O2 Flow Rate 36.4 C L 71 20 138/80 H 94 04/20/24 18:48 04/20/24 18:48 04/20/24 18:48 04/20/24 18:48 04/20/24 18:48 - Lab Results Current Lab Results: Laboratory Tests 04/20/24 15:37: POC Whole Bld Glucose 164 H 04/20/24 14:32: POC Whole Bld Glucose 177 H 04/20/24 13:46: POC Whole Bld Glucose 194 H 04/20/24 11:25: POC Whole Bld Glucose 221 H Home Medications and Allergies <Yue Trotter - Last Filed: 04/20/24 12:51> <Angela Pierce - Last Filed: 04/21/24 17:07> lisinopriL [Lisinopril] 20 mg PO DAILY 02/28/14 Gabapentin 600 mg PO BID 09/03/16 Simvastatin 20 mg PO DAILY 09/03/16 Duloxetine HCl [Cymbalta] 120 mg PO DAILY 01/05/22 buPROPion HCL [Bupropion Xl] 300 mg PO DAILY 01/05/22 Empagliflozin [Jardiance] 25 mg PO DAILY 09/04/22 Metformin HCl [Metformin ER Gastric] 1,000 mg PO BID 09/04/22 Allergies/Adverse Reactions: Allergies Allergy/AdvReac Type Severity Reaction Status Date / Time Penicillins Allergy Intermediate Unknown Verified 04/05/24 14:16 clindamycin Allergy Hives Verified 04/05/24 14:16 metformin AdvReac Nausea Verified 04/05/24 14:16 Anes History & Medical History - Anesthetic History Anesthesia Complications: reports: No previous complications Family history of Anesthesia Complications: Denies Family history of Malignant Hyperthermia: Denies - Medical History Cardiovascular: reports: Hypertension, High cholesterol, Arrhythmia (feels "my heart skip" maybe once a month) Pulmonary: reports: Sleep apnea, CPAP use Gastrointestinal: reports: GERD Urinary: reports: None Neuro: reports: Peripheral neuropathy Musculoskeletal: reports: Chronic back pain Endocrine/Autoimmune: reports: Type 2 diabetes Blood Disorders: reports: None Skin: reports: None Smoking Status: Never smoker Psychosocial: reports: No issues indicated History of Cancer?: No - Surgical History General: reports: Colonoscopy <Yue Trotter - Last Filed: 04/20/24 12:51> Results - EKG Results EKG Comparison: Reviewed EKG, Normal EKG <Yue Trotter Filed: 04/20/24 12:51> Exam General: Alert, Oriented x3, Cooperative, No acute distress Dental: WNL Mouth Openin Fingerbreadth Neck Mobility: Normal Mallampati classification: I Thyromental Distance: 4-6 cm Respiratory: Lungs clear, Normal breath sounds, No respiratory distress, No accessory muscle use Cardiovascular: Regular rate, Normal S1, Normal S2, No murmurs Mental/Cognitive Status: Alert/Oriented X3, Normal for patient Cognitive Status: Within normal limits <Yue Trotter Last Filed: 04/20/24 12:51> Plan Anesthesia Type: General Consent for Procedure(s) Verified and Reviewed: Yes Code Status: Attempt Resuscitation ASA classification: 3-Severe systemic disease Is this case an emergency?: No <Yue Trotter Last Filed: 04/20/24 12:51>
[2024-04-20] MEDS ORDERED: BUPIVACAINE 0.25% PF 30 ML VIAL ONE (12:56)
[2024-04-20] MEDS ORDERED: DEXAMETHASONE 10 MG/ML VIAL ONE (13:13)
[2024-04-20] MEDS ORDERED: ROCURONIUM 50 MG/5 ML VIAL ONE (13:13)
[2024-04-20] MEDS ORDERED: LIDOCAINE-PF 2% 10 ML AMP SUBQ ONE (13:13)
[2024-04-20] MEDS ORDERED: MIDAZOLAM 2 MG/2 ML VIAL ONE (13:13)
[2024-04-20] MEDS ORDERED: ONDANSETRON 4 MG/2 ML VIAL ONE (13:13)
[2024-04-20] MEDS ORDERED: PROPOFOL 200 MG/20 ML VIAL IVP ONE (13:13)
[2024-04-20] MEDS ORDERED: fentaNYL 100 MCG/2 ML VIAL ONE (13:14)
[2024-04-20] MEDS ORDERED: INSULIN REGULAR HUMAN 300 UNIT/3 ML VIAL ONE (13:48)
[2024-04-20] MEDS: BUPIVACAINE 0.25% PF 30 ML VIAL SUBQ ONE (13:59)
[2024-04-20] MEDS ORDERED: SUGAMMADEX 200 MG/2 ML VIAL IVP ONE (14:59)
[2024-04-20] MEDS ORDERED: HYDROmorphone 0.5 MG/0.5 ML SYRINGE IVP PRN ×2 (15:27→15:55)
[2024-04-20] MEDS ORDERED: ONDANSETRON 4 MG/2 ML VIAL IVP PRN ×2 (15:27→15:55)
--- NOTE | 2024-04-20 15:34 | OPERATIVE REPORT ---
Operative Report - General Procedure Date: 04/20/24 Planned Procedure: open repair incarcerated umbilical hernia with mesh Pre-Op Diagnosis: 8x8 cm incarcerated umbilical hernia Procedure Performed: open repair with mesh Post Op Diagnosis: incarcerated umbilical hernia 5 x 5 cm with omentum - Procedure Note Primary Surgeon: nolan carreon Anesthesia Technique: General ET tube Pathology: not sent Estimated Blood Loss (mL): 2 Drain/Tube Type: Other (none) Indications: painful hernia bulge Findings: as above. 2.5 x 4.[address] preperitoneal Complications: none - Other Other Information/Narrative: The patient was prepped identified brought to the operating room and placed in supine position. Sequential compression devices were placed. General endotracheal anesthesia was induced. He was prepped and draped in a sterile fashion and given preoperative antibiotics. Local anesthetic was given throughout the procedure. He had an 8 x 8 cm incarcerated umbilical hernia bulge on standing. After anesthesia was reduced to approximately 6 x 8 cm. Umbilical skin was markedly stretched. An elliptical incision was made around the markedly stretched umbilical skin measuring approximately 7 x 5 cm dissection proceeded down to the hernia sac. The hernia sac was mobilized away from the surrounding subcutaneous tissue down to the fascial defect edge. The hernia sac or peritoneum was released at the fascial defect edge. Subcutaneous tissue was mobilized back from the defect edge by a few centimeters laterally. The hernia sac was then opened approximately 3 cm superficial or anterior of the fascia. Approximately 6 x 6 cm of incarcerated omentum was removed with clamps and 2-0 Vicryl ties. Remainder of the omentum was reduced. The hernia sac or peritoneum was then closed with a running 3-0 Vicryl suture. A large preperitoneal space was then carefully developed. A couple small holes in the peritoneum were closed with [id number] a running 3-0 Vicryl suture. 4-1/2 inch tall by 2-1/2 inch wide polypropylene mesh was placed in the preperitoneal space and secured with 9 interrupted 0 Prolene sutures. Fascia was reapproximated over the mesh in a transverse direction with additional interrupted 0 Prolene sutures. Deep subcutaneous tissue was closed with interrupted 2-0 Vicryl suture. Additional interrupted 2-0 Vicryl sutures were placed further closing the space. Buried interrupted subdermal 3-0 Vicryl sutures were then placed. Skin was closed with a running 4-0 Monocryl subcuticular suture. Steri-Strips and dressing were applied. He tolerated the procedure well was awakened and brought to recovery in good condition.
[2024-04-20] MEDS ORDERED: MORPHINE 2 MG/ML CARPUJECT IVP PRN (15:55)
[2024-04-20] MEDS ORDERED: NALOXONE 0.4 MG/ML VIAL IVP PRN (15:55)
[2024-04-20] MEDS ORDERED: fentaNYL 100 MCG/2 ML VIAL IVP PRN (15:55)
[2024-04-20] MEDS ORDERED: ATROPINE ABBOJECT 1 MG/10 ML SYRINGE IVP PRN (15:55)
[2024-04-20] MEDS ORDERED: HYDROcod/ACETAM 5/325 MG TABLET ONE (15:57)
[2024-04-20] MEDS ORDERED: LACTATED RINGERS 1,000 ML IV SCH (16:00)
[2024-04-20] MEDS ORDERED: ACETAMINOPHEN 500 MG TABLET PO PRN (16:05)
[2024-04-20] MEDS: HYDROcod/ACETAM 5/325 MG TABLET PO PRN (16:06)
[2024-04-20] MEDS: GABAPENTIN 400 MG CAPSULE ONE (16:11)
[2024-04-20] MEDS: GABAPENTIN 100 MG CAPSULE ONE (16:12)
[2024-04-20] MEDS: ACETAMINOPHEN 500 MG TABLET PO ONE (16:13)
[2024-04-20 18:54] VITALS: BP 138/80; O2SAT 94
--- NOTE | 2024-04-20 20:14 | ANESTHESIA POST OP EVALUATION ---
Anesthesia Post Eval - Post Anesthesia Eval Vitals: Last Vital Signs Temp 36.4 C L 04/20/24 18:48 Pulse 71 04/20/24 18:48 Resp 20 04/20/24 18:48 BP 138/80 H 04/20/24 18:48 Pulse Ox 94 04/20/24 18:48 O2 Flow Rate CV Function Including HR & BP: Stable Pain Control: Satisfactory Nausea & Vomiting: Negative Mental Status: Baseline Respiratory Status: Airway Patent Hydration Status: Satisfactory Anesthesia Complications: None
[2024-04-20] MEDS ORDERED: GABAPENTIN 300 MG CAPSULE PO SCH (21:00)
== END 2024-04-20 19:09 | disposition home or self-care (01) ==
LOC: SDS 10:57 → MS2 16:26 → SDS 19:09
PROVIDERS: ATTEND Surgery
DX: K42.0 Umbilical hernia with obstruction, without gangrene (principal); I10 Essential (primary) hypertension; G47.30 Sleep apnea, unspecified; E11.9 Type 2 diabetes mellitus without complications; E66.9 Obesity, unspecified; Z68.38 Body mass index [BMI] 38.0-38.9, adult; Z79.84 Long term (current) use of oral hypoglycemic drugs
CPT/HCPCS: 49594; A9270; C1781; J1815; J7120